=== PATIENT | female | born 1955 | race Caucasian/White ===

== ENCOUNTER 2017-09-08 10:54 | Outpatient (CLI) | payer OTHER | END 2017-09-08 16:14 | disposition home or self-care (01) | LOC: MAMO-SONO 10:54 → NUCLEAR 14:00 → MAMO-SONO 16:14 | DX: Z12.31 Encounter for screening mammogram for malignant neoplasm of breast (principal) ==

== ENCOUNTER 2017-09-08 14:42 | Outpatient (CLI) | payer OTHER | END 2017-09-08 15:04 | disposition home or self-care (01) | LOC: NUCLEAR 14:42 | DX: M81.0 Age-related osteoporosis without current pathological fracture (principal) ==

== ENCOUNTER 2017-09-29 11:27 | Outpatient (CLI) | payer OTHER | END 2017-09-29 17:00 | disposition home or self-care (01) | LOC: MRI 11:27 | DX: M75.41 Impingement syndrome of right shoulder (principal) | CPT/HCPCS: 73221 ==

== ENCOUNTER 2018-03-14 10:03 | Outpatient (CLI) | payer OTHER | END 2018-03-14 17:00 | disposition home or self-care (01) | LOC: RAD 10:03 | DX: M51.9 Unspecified thoracic, thoracolumbar and lumbosacral intervertebral disc disorder (principal) ==

== ENCOUNTER → 2018-10-03 | Outpatient (CLI) | payer OTHER | END | disposition home or self-care (01) | LOC: MAMO-SONO 09:07 | DX: Z12.31 Encounter for screening mammogram for malignant neoplasm of breast (principal) ==

== ENCOUNTER → 2019-12-31 | Outpatient (CLI) | payer OTHER | END | disposition home or self-care (01) | LOC: MAMO-SONO 14:17 | PROVIDERS: ATTEND Obstetrics & Gynecology Gynecology | DX: M16.4 Bilateral post-traumatic osteoarthritis of hip (principal); N60.29 Fibroadenosis of unspecified breast; Z12.31 Encounter for screening mammogram for malignant neoplasm of breast ==

== ENCOUNTER 2020-01-14 13:22 | Outpatient (CLI) | payer OTHER | END 2020-01-14 13:33 | disposition home or self-care (01) | LOC: NUCLEAR 13:22 | PROVIDERS: ATTEND Physical Medicine & Rehabilitation Sports Medicine | DX: M85.89 Other specified disorders of bone density and structure, multiple sites (principal) ==

== ENCOUNTER → 2020-01-14 | Outpatient (CLI) | payer OTHER | END | disposition home or self-care (01) | LOC: RAD 08:49 | PROVIDERS: ATTEND Physical Medicine & Rehabilitation Sports Medicine | DX: M54.6 Pain in thoracic spine (principal); M54.5 Low back pain ==

== ENCOUNTER → 2020-11-10 | Outpatient (CLI) | payer OTHER | END | disposition home or self-care (01) | LOC: SONOGRAMA 08:05 → MAMO-SONO 08:30 | PROVIDERS: ATTEND Specialist | DX: K75.81 Nonalcoholic steatohepatitis (NASH) (principal) ==

== ENCOUNTER 2021-06-11 13:36 | Outpatient (CLI) | payer OTHER | END 2021-06-11 14:00 | disposition home or self-care (01) | LOC: MAMO-SONO 13:36 | PROVIDERS: ATTEND Obstetrics & Gynecology Gynecology | DX: N60.11 Diffuse cystic mastopathy of right breast (principal); N60.12 Diffuse cystic mastopathy of left breast; Z12.31 Encounter for screening mammogram for malignant neoplasm of breast ==

== ENCOUNTER 2021-06-23 13:19 | Outpatient (CLI) | payer OTHER | END 2021-06-23 13:30 | disposition home or self-care (01) | LOC: TOM 13:19 | PROVIDERS: ATTEND Otolaryngology | DX: J32.1 Chronic frontal sinusitis (principal); L98.8 Other specified disorders of the skin and subcutaneous tissue ==

== ENCOUNTER 2022-02-25 13:26 | Outpatient (CLI) | payer OTHER | END 2022-02-25 13:27 | disposition home or self-care (01) | LOC: NUCLEAR 13:26 | PROVIDERS: ATTEND Obstetrics & Gynecology Gynecology | DX: M81.0 Age-related osteoporosis without current pathological fracture (principal) ==

== ENCOUNTER 2022-08-02 13:12 | Outpatient (CLI) | payer OTHER | END 2022-08-02 13:30 | disposition home or self-care (01) | LOC: MAMO-SONO 13:12 | PROVIDERS: ATTEND Obstetrics & Gynecology Gynecology | DX: N60.11 Diffuse cystic mastopathy of right breast (principal); N60.12 Diffuse cystic mastopathy of left breast ==

== ENCOUNTER → 2023-02-09 | Outpatient (CLI) | payer OTHER | END | disposition home or self-care (01) | LOC: RAD 06:58 | PROVIDERS: ATTEND Podiatrist | DX: M20.41 Other hammer toe(s) (acquired), right foot (principal) ==

== ENCOUNTER 2023-06-13 10:01 | Outpatient (CLI) | payer OTHER | END 2023-06-13 15:18 | disposition home or self-care (01) | LOC: RAD 10:01 | PROVIDERS: ATTEND Physical Medicine & Rehabilitation Pain Medicine | DX: M25.569 Pain in unspecified knee (principal) ==

== ENCOUNTER 2024-02-23 08:48 | Outpatient (CLI) | payer OTHER | END 2024-02-23 09:30 | disposition home or self-care (01) | LOC: MAMO-SONO 08:48 | PROVIDERS: ATTEND Obstetrics & Gynecology Gynecology | DX: N60.11 Diffuse cystic mastopathy of right breast (principal); N60.12 Diffuse cystic mastopathy of left breast; Z12.31 Encounter for screening mammogram for malignant neoplasm of breast ==

== ENCOUNTER 2024-07-24 09:48 | Outpatient (CLI) | payer OTHER | END 2024-07-24 10:05 | disposition home or self-care (01) | LOC: RAD 09:48 | DX: M25.569 Pain in unspecified knee (principal); M53.88 Other specified dorsopathies, sacral and sacrococcygeal region ==

== ENCOUNTER 2024-07-24 11:36 | Outpatient (CLI) | payer OTHER | END 2024-07-24 11:37 | disposition home or self-care (01) | LOC: NUCLEAR 11:36 | PROVIDERS: ATTEND Obstetrics & Gynecology Gynecology | DX: M81.0 Age-related osteoporosis without current pathological fracture (principal) ==

== ENCOUNTER → 2025-04-16 | Outpatient (CLI) | payer OTHER | END | disposition home or self-care (01) | LOC: RAD 10:05 | PROVIDERS: ATTEND Physical Medicine & Rehabilitation Pain Medicine | DX: M54.2 Cervicalgia (principal) ==